=== PATIENT | male | born 1975 | race Caucasian/White ===

== ENCOUNTER 2016-09-06 09:10 | Outpatient (CLI) ==
--- NOTE | 2016-09-06 12:24 | MRI ---
EXAM: MRI lumbar spine without IV contrast. DATE: 06 September 2016. HISTORY: Lumbar disc degeneration. Chronic low back pain. TECHNIQUE: Sagittal and axial T1W and T2W sequences of the lumbar spine along with sagittal IR and coronal T2W sequences were obtained using 1.2 Cely magnet. No IV contrast. COMPARISON: Frontal chest [address] the abdomen/pelvis 30 August 2011. FINDINGS: There are five [id number] lumbar vertebra. Mild leftward curvature of the lumbar sp ine is present, with the apex of curvature at L3-4. No acute lumbar fracture, subluxation, osseous malignancy, or pars interarticularis defect is identified. Lumbar vertebra are normal in height. B one marrow signal is normal. Tiny, chronic Schmorl's node is present at the T11 inferior endplate. Lumbar intervertebral discs are normal in height and signal. No sacral fracture or stress reaction is apparent. Small region of T2W/T1W dark signal (13 x 14 x 25 mm) in the left iliac wing near the SI joint is new since August 2011 CT scan. Conus medullaris terminates at L1. Visible spinal cord is normal. No retroperitoneal lymphadenopathy, paraspinal mass, or aortic aneurysm is detected. Paraspinal mus culature is symmetric bilaterally. Visible portions of the liver, gallbladder, spleen, adrenal glan ds, and kidneys are normal. No bowel obstruction or neoplasm is demonstrated. Segmental analysis: T12-L1: Normal. L1-2: Normal. L2-3: Minimal posterior to foraminal disc bulge and minor facet disease cause mild/moderate narrowi ng at the opening to the right foramen and minor left foraminal narrowing. No central canal stenosis . L3-4: Small posterior to foraminal disc bulge and minor facet disease cause mild/moderate narrowing at the opening to the right foramen and mild left foraminal narrowing. No central canal stenosis. L4-5: Minimal posterior to foraminal disc bulge and mild facet disease cause mild right and minor l eft foraminal narrowing. No central canal stenosis. L5-S1: Normal, except for minor left facet arthropathy. IMPRESSIONS: 1. Lumbar spine mild levoscoliosis, minor disc bulges (possibly physiologic) and minor/mild facet d isease. 2. Multilevel foraminal narrowing. No definitive nerve root compression. 3. No lumbar spine central canal stenosis. 4. Left iliac bone probable sclerosis - consider SI joint arthritis. If there is clinical concern f or sclerotic tumor, plain films and/or bone scan may be helpful.
== END 2016-09-06 09:11 | disposition home or self-care (01) ==
LOC: RAD 09:10
PROVIDERS: ATTEND Physician Assistant
DX: M51.36 Other intervertebral disc degeneration, lumbar region (principal)

== ENCOUNTER 2016-10-05 10:14 | Emergency (ER) ==
[2016-10-05 10:21] VITALS: BP 148/87; TEMP 97.3; BMI 20.3
--- NOTE | 2016-10-05 11:16 | ED.PDOC ---
General ED Provider: Dr. HARIKA BOLANOS JR Chief Complaint: Chest Wall Injury/Pain Stated Complaint: left lateral lower rib pain[ End ]97.3 114 18 97% 148/87 8/ 10SUDDEN ONSET LEFT LATERAL LOWER RIB PAIN[ End ] Time Seen by Physician: 11:15 Mode of Arrival: Walk-In Information Source: Patient Exam Limitations: No limitations Primary Care Provider: SAIRA JUAN Nursing and Triage Documentation Reviewed and Agree: No Review of Systems - Review Of Systems Constitutional: Reports: Malaise Eyes: Reports: No symptoms Ears, Nose, Mouth, Throat: Reports: No symptoms Respiratory: Reports: No symptoms Cardiac: Reports: Chest pain GI: Reports: Abdominal pain : Reports: No symptoms Musculoskeletal: Reports: Muscle pain Skin: Reports: No symptoms Neurological: Reports: No symptoms Endocrine: Reports: No symptoms Hematologic/Lymphatic: Reports: No symptoms All Other Systems: Other Past Medical History - Past Medical History Endocrine: Reports: DM 2 Cardiovascular: Reports: None Respiratory: Reports: None Hematological: Reports: None Gastrointestinal: Reports: None Genitourinary: Reports: None Neuro/Psych: Reports: Anxiety, Depression Musculoskeletal: Reports: Back Pain Cancer: Reports: None Other Pertinent Past Medical History: being tapered off norco by pmd for backpain - Surgical History General Surgical History: Reports: None - Family History Family History: Reports: Unknown - Social History Smoking Status: Current every day smoker Hx Substance Use: No Alcohol Screening: None Physical Exam - Physical Exam Appearance: Ill-appearing Pain Distress: Moderate Eyes: [place] ENT: Ears normal, Nose normal, Oropharynx normal Neck: Supple Respiratory: Airway patent, Breath sounds clear, Breath sounds equal, Respirations nonlabored Cardiovascular: RRR, Pulses normal, No rub, No murmur GI/: Soft, Nontender, No masses, Bowel sounds normal, No Organomegaly Musculoskeletal: Normal strength, ROM intact, No edema, No calf tenderness ( tender left chest wall ant inferiorly) Skin: Warm, Dry, Normal color Neurological: Sensation intact, Motor intact, Reflexes intact, Cranial nerves intact, Alert, Oriented Interpretation - Radiology Interpretation Radiology Interpretation By: Radiologist Radiology Results: Negative Exam Interpreted: CXR - EKG Interpretation Time of EKG #1: 11:30 Rate: Tachy Rhythm: Sinus (104) ST Segment: Other (ant q wavws non acute) Critical Care Note - Critical Care Note Total Time (mins): 5 Course - Course Orders, Labs, Meds: Orders Category Date Time Status EKG-(ED ONLY) Stat CARDIO 10/05/16 11:15 Completed CHEST, 2 VIEWS PA & LAT Stat RADS 10/05/16 11:49 Completed Vital Signs: Temp Pulse Resp BP Pulse Ox 10/05/16 10:18 97.3 F L 114 H 18 148/87 H 97 Departure - Departure Time of Disposition: 12:43 Disposition: HOME SELF-CARE Discharge Problem: Chest wall pain Instructions: Chest Wall Pain (ED), Thoracic Pain (ED) Condition: Good Pt referred to PMD for follow-up: Yes Additional Instructions: Naprosyn for pain- take with food flexeril for muscle spasms recheck PMD one week may follow with [facility] Prescriptions: Naproxen [Naprosyn] 500 mg PO Q12HR PRN #30 tablet PRN Reason: PAIN Cyclobenzaprine HCl [Flexeril] 5 mg PO TID PRN #15 tablet PRN Reason: Spasms Allergies/Adverse Reactions: Allergies Latex, Natural Rubber Adverse Reaction (Verified 10/05/16 10:16) Sulfa (Sulfonamide Antibiotics) Adverse Reaction (Verified 10/05/16 10:16) Home Medications: Ambulatory Orders Alprazolam [Xanax] 2 mg PO BID 10/05/16 Bupropion HCl [Wellbutrin] 75 mg PO DAILY 10/05/16 Cyclobenzaprine HCl [Flexeril] 5 mg PO TID PRN #15 tablet 10/05/16 Hydrocodone Bit/Acetaminophen [[place] 10-325] 1 each PO Q6HR PRN 10/05/16 Insulin Glargine,Hum.rec.anlog [Lantus] 25 unit SUBCUT INSULIN MORNING 10/05/16 Insulin Lispro [Humalog] 1 unit SQ QID 10/05/16 Naproxen [Naprosyn] 500 mg PO Q12HR PRN #30 tablet 10/05/16
--- NOTE | 2016-10-05 12:13 | DI ---
EXAM: Chest two view, frontal and lateral views. HISTORY: Cough. Chest pain. COMPARISON: 08/30/2011. FINDINGS: The heart size is normal. There is no pulmonary vascular congestion. The lungs are fifi r. No pleural effusion or pneumothorax is seen. No acute osseous abnormality identified. Since prior study, there has been no significant interval change. IMPRESSION: No acute cardiopulmonary process.
== END 2016-10-05 12:56 | disposition home or self-care (01) ==
LOC: ED 10:14
DX: R07.89 Other chest pain (principal); R10.9 Unspecified abdominal pain; E11.9 Type 2 diabetes mellitus without complications; F17.210 Nicotine dependence, cigarettes, uncomplicated; Z79.899 Other long term (current) drug therapy
CPT/HCPCS: 93005; 93010; 99282

== ENCOUNTER 2018-06-30 02:53 | Outpatient (CLI) | END 2018-06-30 03:19 | disposition short-term general hospital (02) | LOC: AMBL 02:53 | PROVIDERS: ATTEND Family Medicine | DX: R41.82 Altered mental status, unspecified (principal); R33.9 Retention of urine, unspecified; F32.9 Major depressive disorder, single episode, unspecified; R00.0 Tachycardia, unspecified ==

== ENCOUNTER 2018-10-29 15:58 | Outpatient (CLI) | payer OTHER | END 2018-10-29 15:59 | disposition home or self-care (01) | LOC: RHC-LAB 15:58 | PROVIDERS: ATTEND Nurse Practitioner Family | DX: E10.9 Type 1 diabetes mellitus without complications (principal); Z00.00 Encounter for general adult medical examination without abnormal findings | CPT/HCPCS: 36415; 80053; 80061; 83036; 84443; 85025 ==